=== PATIENT | male | born 1975 | race Caucasian/White ===

== ENCOUNTER 2021-12-04 23:18 | Emergency (ER) | payer MEDICARE, MEDICAID, SELFPAY ==
[2021-12-04 23:23] VITALS: BP 142/90; PULSE 98; RESP 20; TEMP 36.6; O2SAT 95; BMI 33.2
--- NOTE | 2021-12-04 23:28 | ECG_ITS ---
[facility] Test Date: 2021-12-04 Pat Name: Savage Partida Department: Room: Gender: Male Cod Clerk: : 1975 Requested By: Chaim Madrigal Order Number: [id number] Schafer MD: Cheko Russell M.D. Measurements Intervals [place] Rate: 98 P: 51 NJ: 124 QRS: 85 QRSD: 105 T: 38 QT: 340 QTc: 434 Interpretive Statements SINUS RHYTHM Compared to ECG 09/25/2017 02:31:26 Short NJ interval no longer present Electronically Signed On 12-05-2021 12:12:41 CDT by Cheko Russell M.D. [email or web address]
--- NOTE | 2021-12-04 23:28 | XRR_ITS ---
PROCEDURE INFORMATION: Exam: XR Chest Exam date and time: 12/04/2021 11:53 PM Age: 46 years old Clinical indication: Dyspnea and shortness of breath; Additional info: Sob/cp TECHNIQUE: Imaging protocol: XR of the chest. Views: 1 view. COMPARISON: CR Chest 1 [place] [id number] 09/25/2017 2:41 AM FINDINGS: Lungs: No CHF/pulmonary edema. Poor inspiration somewhat limits evaluation, especially of the lung bases. Visible lungs appear essentially clear. Pleural spaces: No visible pneumothorax. No definite pleural fluid. Heart/Mediastinum: Heart size is upper range of normal. Bones/joints: No significant acute finding. XR/XR chest 1V portable [id number] IMPRESSION: 1. No definite CHF or pneumonia. 2. Other findings discussed above.
[2021-12-04 23:40] LABS: Basophils # 0.1 10^3/uL (0.0-0.1); Basophils % 1.1 %; Eosinophils # 0.5 10^3/uL (0.0-0.8); Eosinophils % 6.6 %; Hematocrit 42.6 % (42.0-52.0); Hemoglobin 14.2 g/dL (11.7-16.6); Lymphocytes # 2.4 10^3/uL (0.8-4.8); Lymphocytes % 33.3 %; Mean Corpuscular HGB Conc 33.3 g/dL (30.0-36.0); Mean Corpuscular Hemoglobin 31.4 pg (28.0-34.0); Mean Corpuscular Volume 94.2 fl (80-94); Mean Platelet Volume 9.5 fL (7.4-10.4); Monocytes # 0.5 10^3/uL (0.2-0.9); Monocytes % 6.3 %; Neutrophils # 3.81 10^3/uL (1.8-7.7); Neutrophils % 52.4 %; Nucleated Red Blood Cells % 0 %; Platelet Count 265 10^3/cmm (130-400); Red Blood Count 4.52 10^6/uL (4.1-5.3); Red Cell Distribution Width 13.2 % (12.1-15.1); White Blood Count 7.3 10^3/uL (4.0-10.0)
--- NOTE | 2021-12-04 23:44 | CTR_ITS ---
PROCEDURE INFORMATION: Exam: CT Head Without Contrast Exam date and time: 12/05/2021 12:20 AM Age: 46 years old Clinical indication: Pain; Headache not specified; Prior surgery; Surgery date: 6+ months; Surgery type: Craniotomy - traumatic hemmorhage - legally blind; Patient HX: C/O severe L frontal CANO; Additional info: Worst headache he has ever had TECHNIQUE: Imaging protocol: Computed tomography of the head without contrast. Radiation optimization: All CT scans at this facility use at least one of these dose optimization techniques: automated exposure control; mA and/or kV adjustment per patient size (includes targeted exams where dose is matched to clinical indication); or iterative reconstruction. COMPARISON: CT head wo con* [id number] 11/13/2015 4:50 PM RADIATION DOSE METRICS: Total DLP (mGy-cm): 1720.26 FINDINGS: Brain: No acute intracranial hemorrhage or mass effect. No definite acute infarct by CT. Cerebral ventricles: Ventricle size is normal for age. Paranasal sinuses: Prominent fluid/opacity involving the left ethmoid sinus, with mild opacity of the left frontal and included upper left maxillary sinuses. Included paranasal sinuses otherwise appear essentially clear. Mastoid air cells: No significant acute finding. Bones/joints: No definite acute skull fracture. Soft tissues: No significant acute finding. CT/CT head wo con* [id number] IMPRESSION: 1. No acute intracranial hemorrhage or mass effect. 2. Paranasal sinus findings as discussed above. 3. Other findings discussed above.
--- NOTE | 2021-12-04 23:45 | ED_ITS ---
Documented by User: NICHOLAS Naqvi 12/05/21 21:17 HPI - Anxiety General: Chief Complaint: Anxiety Stated Complaint: sob Time Seen by Provider: 12/04/21 23:28 History of Present Illness: Patient is a 46-year-old male comes to the ED via EMS with headache, shortness of breath and chest pain. Symptoms started all of a sudden approximately an hour before arrival to ED. He said he was lying down and woke up in an worst headache he has ever had on the left frontal part of his head. Denies any neurological symptoms such as paresthesias or weakness to 1 s grazyna of his body. It is a constant aching pain that he rates currently 6 out of 10. He is also having some chest pain in the middle of his chest since he woke up along with some shortness of breath. Patient is from [facility] and he asked them for some medicine for his headache and they sent him here to the ED. patient did state that he is legally blind. Associated symptoms: Reports chest pain and headache(s); Deny chills, fever(s), nausea, palpitations or vomiting Review of Systems Const: Denies: fever(s), chills or fatigue Eyes: Denies: change in vision or eye discomfort ENMT: Denies: throat pain, odynophagia, nasal discharge or nasal congestion Card: Reports: chest pain; Denies: palpitations, edema, swelling of feet/ankles, dyspnea on exertion or orthopnea Resp: Reports: dyspnea; Denies: productive cough or non-productive cough GI: Denies: abdominal pain, nausea, vomiting, diarrhea, constipation or hematochezia : Denies: flank pain, difficulty urinating, dysuria or hematuria Musc: Denies: neck pain, back pain or extremity swelling Skin/Breast: Denies: rash or new lesions Neuro: Reports: headache(s); Denies: numbness in extremities or weakness in extremities PFS ED PFSH: Medical History No pertinent family history Surgical History No pertinent past surgical history Social History Smoking and tobacco status: never smoked Alcohol intake: current Alcohol intake frequency: holidays/special occasions only Physical Exam Const: COMMON NORMALS: patient oriented x3 and alert GENERAL APPEARANCE: cooperative and anxious HENMT: COMMON NORMALS: normocephalic HEAD & SCALP: normocephalic MOUTH: Normal oral and palatal mucosa present THROAT: posterior oropharynx normal and uvula midline Neck/C-Spine: COMMON NORMALS: supple GENERAL: Yes normal visual inspection Resp: COMMON NORMALS: normal respiratory effort, No retractions, No use of accessory muscles and clear to auscultation bilaterally AUSCULTATION: clear to auscultation bilaterally Cardio: COMMON NORMALS: regular rate, regular rhythm, S1 normal heart sound present, S2 normal heart sound present, No gallops present (Cardio), No clicks present (Cardio), No murmurs present (Cardio) and Peripheral pulses 2+ throughout RATE: regular rate RHYTHM: regular rhythm HEART SOUNDS: S1 normal heart sound present and S2 normal heart sound present PERIPHERAL PULSES: Peripheral pulses 2+ throughout GI: COMMON NORMALS: Normal to inspection, nondistended, normoactive bowel sounds present, Soft to palpation, non-tender and no masses PALPATION: Yes Soft to palpation : COMMON NORMALS: Yes no CVA tenderness BLADDER/KIDNEY EXAM: Yes no CVA tenderness Back/Pelvis: COMMON NORMALS: no CVA tenderness Extremity: COMMON NORMALS: normal to inspection and no pedal edema Neuro: COMMON NORMALS: patient oriented x3 and moves all extremities SENSORIUM/ORIENTATION: Yes alert Skin: GENERAL SKIN EXAM: dry skin Course Vital Signs: Vital signs: Vital Signs Temperature 98 F 12/04/21 23:23 Pulse Rate 78 12/05/21 02:22 Respiratory Rate 18 12/05/21 02:22 Blood Pressure 124/78 12/05/21 02:22 Pulse Oximetry 95 12/05/21 02:22 MDM - Anxiety Medical Decision Making Patient is a 46-year-old male comes to the ED with acute onset of headache and some chest pain and dyspnea. Patient is at [facility] and complained about having a headache and wanting medication for that and they sent him here to the ED. Vitals are stable. Patient appears anxious, but rest of exam is benign. CT of head showed no acute findings. All labs were unremarkable. Troponin negative. Chest x-ray showed no acute findings. EKG showed no ST segment eleva tion or depression. Patient was given a dose of Toradol and some Ativan and his symptoms improved. Patient's chest pain and dyspnea are likely due to anxiety. He was stable for discharge home. He was told to follow-up with his PCP in the next week for reevaluation. Return to ED precautions given. Patient is to agree with plan. Lab Data I reviewed the patient's lab results. : 12/04/21 23:30 12/04/21 23: Radiology Impressions Chest X-Ray 12/04/21: IMPRESSION: 1. No definite CHF or pneumonia. 2. Other findings discussed above. Head CT 12/04/21:44 IMPRESSION: 1. No acute intracranial hemorrhage or mass effect. 2. Paranasal sinus findings as discussed above. 3. Other findings discussed above. Laboratory Results WBC 7.3 10^3/uL (4.0-10.0) 12/04/21: RBC 4.52 10^6/uL (4.1-5.3) 12/04/21: Hgb 14.2 g/dL (11.7-16.6) 12/04/21 23: Hct 42.6 % (42.0-52.0) 12/04/21: MCV 94.2 fl (80-94) H 12/04/21: MCH 31.4 pg (28.0-34.0) 12/04/21 23: MCHC 33.3 g/dL (30.0-36.0) 12/04/21: RDW 13.2 % (12.1-15.1) 12/04/21: Plt Count 265 10^3/cmm (130-400) 12/04/21 23: MPV 9.5 fL (7.4-10.4) 12/04/21: Neut % (Auto) 52.4 % 12/04/21: Lymph % (Auto) 33.3 % 12/04/21: Reynolds % (Auto) 6.3 % 12/04/21 23: Eos % (Auto) 6.6 % 12/04/21: Baso % (Auto) 1.1 % 12/04/21: Neut # (Auto) 3.81 10^3/uL (1.8-7.7) 12/04/21 23:30 Lymph # (Auto) 2.4 10^3/uL (0.8-4.8) 12/04/21 23:30 Reynolds # (Auto) 0.5 10^3/uL (0.2-0.9) 12/04/21 23:30 Eos # (Auto) 0.5 10^3/uL (0.0-0.8) 12/04/21: Baso # (Auto) 0.1 10^3/uL (0.0-0.1) 12/04/21: Nucleated RBC % (auto) 0 % 12/04/21: Nucleated RBCs # 0.0 /100WBC 12/04/21: Sodium 138 mmol/L (136-145) 12/04/21: Potassium 3.8 mmol/L (3.5-5.1) 12/04/21: Chloride 99 mmol/L (98-107) 12/04/21: Carbon Dioxide 28 mmol/L (22-29) 12/04/21: Anion Gap 14.8 (5-19) 12/04/21 23: BUN 13 mg/dL (6-20) 12/04/21: Creatinine 0.9 mg/dL (0.7-1.2) 12/04/21 23: GFR Calculation 91.7 mL/min (90-130) 12/04/21: Glucose 134 mg/dL (65-115) H 12/04/21: Calculated Osmolality 288 mOsm/kg (285-295) 12/04/21: Calcium 9.6 mg/dL (8.5-10.5) 12/04/21: Total Bilirubin 0.2 mg/dL (0.15-1.2) 12/04/21: AST 121 U/L (0-40) H 12/04/21: ALT 239 U/L (0-41) H 12/04/21: Alkaline Phosphatase 117 IU/L (40-130) 12/04/21: Troponin T Baseline 6 ng/L (0-15) 12/04/21: Total Protein 7.2 g/dL (6.6-8.7) 12/04/21 23:30 Albumin 4.3 g/dL (3.5-5.2) 12/04/21 23:30 Globulin 2.9 g/dL (1.3-4.6) 12/04/21 23:30 EKG Data EKG 1: EKG interpretation date: 12/04/21 Interpretation: Chest X-Ray 12/04/21 23:28 IMPRESSION: 1. No definite CHF or pneumonia. 2. Other findings discussed above. Head CT 12/04/21 23:44 IMPRESSION: 1. No acute intracranial hemorrhage or mass effect. 2. Paranasal sinus findings as discussed above. 3. Other findings discussed above. Sinus rhythm, no ST segment elevation or depression seen. 98 bpm. Other EKG comments: Chest X-Ray 12/04/21 23:28 IMPRESSION: 1. No definite CHF or pneumonia. 2. Other findings discussed above. Head CT 12/04/21 23:44 IMPRESSION: 1. No acute intracranial hemorrhage or mass effect. 2. Paranasal sinus findings as discussed above. 3. Other findings discussed above. Discharge Plan Discharge Patient Disposition: Home Clinical Impression: Acute anxiety Headache Qualifiers: Headache type: unspecified Headache chronicity pattern: acute headache Intractability: not intractable Qualified Code(s): R51.9 - Headache, unspecified Condition: Stable Prescriptions: No Action tamsulosin [Flomax] 0.4 mg capsule 0.4 mg PO DAILY 0RF hydrocodone-acetaminophen 10-325 mg tablet 1 tab PO Q4H PRN0RF lisinopril 10 mg tablet 10 mg PO DAILY 0RF sulfamethoxazole-trimethoprim 800-160 mg tablet 1 tab PO BID 10 Days Qty: 20 0RF Discharge Orders: Discharge ED (Routine); Ordered 12/05/21 Ordered By: Chaim Madrigal Referrals: Yesenia Hooper DO [Primary Care Provider] - Discharge Diet: Regular Discharge Activity: Increase activity as tolerated Patient Instructions: Acute Headache (ED), Anxiety (ED) Activity Restrictions/Additional Instructions: Follow-up with medical provider as directed in the next 5 to 7 days for reevaluation. Continue taking all home medications as previously prescribed. Take ytqi-nab-[id number] Tylenol or Motrin for any reoccurring headaches. Drink plenty fluids and stay hydrated. Return to the ER or your medical provider if condition worsens. Please read and understand discharge instructions. Thank you for choosing [facility] for your healthcare needs today. Please realize this is an emergency room and that we are providing you with a medical screening exam and this may not be complete and all inclusive of all the testing and or work up that you may need to determine your ailment or severity of your illness. It is very important that you follow up as instructed or that you return to the Emergency Department should you have concerns or if your condition changes or worsens in any way. Coding Level of Care Code ED Co Supervisor [employer] for Chg Fwd Exam Comprehensive Documented by User: Cyrus Box MD 12/07/21 05:09 HPI - Anxiety General: Chief Complaint: Anxiety Stated Complaint: sob Time Seen by Provider: 12/04/21 23:28 [facility] ED PFSH: Medical History No pertinent family history Surgical History No pertinent past surgical history Social History Smoking and tobacco status: never smoked Alcohol intake: current Alcohol intake frequency: holidays/special occasions only Course Vital Signs: Vital signs: Vital Signs Temperature 98 F 12/04/21 23:23 Pulse Rate 78 12/05/21 02:22 Respiratory Rate 18 12/05/21 02:22 Blood Pressure 124/78 12/05/21 02:22 Pulse Oximetry 95 12/05/21 02:22 MDM - Anxiety Medical Decision Making Patient is a 46-year-old male comes to the ED with acute onset of headache and some chest pain and dyspnea. Patient is at [facility] and complained about having a headache and wanting medication for that and they sent him here to the ED. Vitals are stable. Patient appears anxious, but rest of exam is benign. CT of head showed no acute findings. All labs were unremarkable. Troponin negative. Chest x-ray showed no acute findings. EKG showed no ST segment elevation or depression. Patient was given a dose of Toradol and some Ativan and his symptoms improved. Patient's chest pain and dyspnea are likely due to anxiety. He was stable for discharge home. He was told to follow-up with his PCP in the next week for reevaluation. Return to ED precautions given. Patient is to agree with plan. I have reviewed this documentation by NICHOLAS Naqvi. Cyrus Box MD Emergency Medicine Lab Data : 12/04/21 23:30 12/04/21 23:30 Radiology Impressions Chest X-Ray 12/04/21 23:28 IMPRESSION: 1. No definite CHF or pneumonia. 2. Other findings discussed above. Head CT 12/04/21:44 IMPRESSION: 1. No acute intracranial hemorrhage or mass effect. 2. Paranasal sinus findings as discussed above. 3. Other findings discussed above. Laboratory Results WBC 7.3 10^3/uL (4.0-10.0) 12/04/21 23: RBC 4.52 10^6/uL (4.1-5.3) 12/04/21 23:30 Hgb 14.2 g/dL (11.7-16.6) 12/04/21 23: Hct 42.6 % (42.0-52.0) 12/04/21 23: MCV 94.2 fl (80-94) H 12/04/21 23:30 MCH 31.4 pg (28.0-34.0) 12/04/21 23: MCHC 33.3 g/dL (30.0-36.0) 12/04/21 23: RDW 13.2 % (12.1-15.1) 12/04/21 23: Plt Count 265 10^3/cmm (130-400) 12/04/21 23: MPV 9.5 fL (7.4-10.4) 12/04/21 23: Neut % (Auto) 52.4 % 12/04/21 23:30 Lymph % (Auto) 33.3 % 12/04/21 23:30 Reynolds % (Auto) 6.3 % 12/04/21 23:30 Eos % (Auto) 6.6 % 12/04/21 23:30 Baso % (Auto) 1.1 % 12/04/21 23: Neut # (Auto) 3.81 10^3/uL (1.8-7.7) 12/04/21 23: Lymph # (Auto) 2.4 10^3/uL (0.8-4.8) 12/04/21 23:30 Reynolds # (Auto) 0.5 10^3/uL (0.2-0.9) 12/04/21 23: Eos # (Auto) 0.5 10^3/uL (0.0-0.8) 12/04/21 23: Baso # (Auto) 0.1 10^3/uL (0.0-0.1) 12/04/21 23: Nucleated RBC % (auto) 0 % 12/04/21 23: Nucleated RBCs # 0.0 /100WBC 12/04/21 23: Sodium 138 mmol/L (136-145) 12/04/21: Potassium 3.8 mmol/L (3.5-5.1) 12/04/21: Chloride 99 mmol/L (98-107) 12/04/21: Carbon Dioxide 28 mmol/L (22-29) 12/04/21: Anion Gap 14.8 (5-19) 12/04/21 23: BUN 13 mg/dL (6-20) 12/04/21: Creatinine 0.9 mg/dL (0.7-1.2) 12/04/21: GFR Calculation 91.7 mL/min (90-130) 12/04/21: Glucose 134 mg/dL (65-115) H 12/04/21 23: Calculated Osmolality 288 mOsm/kg (285-295) 12/04/21: Calcium 9.6 mg/dL (8.5-10.5) 12/04/21: Total Bilirubin 0.2 mg/dL (0.15-1.2) 12/04/21 23:30 AST 121 U/L (0-40) H 12/04/21 23:30 ALT 239 U/L (0-41) H 12/04/21 23:30 Alkaline Phosphatase 117 IU/L (40-130) 12/04/21 23:30 Troponin T Baseline 6 ng/L (0-15) 12/04/21 23:30 Total Protein 7.2 g/dL (6.6-8.7) 12/04/21 23:30 Albumin 4.3 g/dL (3.5-5.2) 12/04/21 23:30 Globulin 2.9 g/dL (1.3-4.6) 12/04/21 23:30 EKG Data EKG 1: Interpretation: Chest X-Ray 12/04/21 23:28 IMPRESSION: 1. No definite CHF or pneumonia. 2. Other findings discussed above. Head CT 12/04/21 23:44 IMPRESSION: 1. No acute intracranial hemorrhage or mass effect. 2. Paranasal sinus findings as discussed above. 3. Other findings discussed above. Other EKG comments: Chest X-Ray 12/04/21 23:28 IMPRESSION: 1. No definite CHF or pneumonia. 2. Other findings discussed above. Head CT 12/04/21 23:44 IMPRESSION: 1. No acute intracranial hemorrhage or mass effect. 2. Paranasal sinus findings as discussed above. 3. Other findings discussed above. Discharge Plan Discharge Patient Disposition: Home Clinical Impression: Acute anxiety Headache Qualifiers: Headache type: unspecified Headache chronicity pattern: acute headache Intractability: not intractable Qualified Code(s): R51.9 - Headache, unspecified Condition: Stable Prescriptions: No Action tamsulosin [Flomax] 0.4 mg capsule 0.4 mg PO DAILY 0RF hydrocodone-acetaminophen 10-325 mg tablet 1 tab PO Q4H PRN0RF lisinopril 10 mg tablet 10 mg PO DAILY 0RF sulfamethoxazole-trimethoprim 800-160 mg tablet 1 tab PO BID 10 Days Qty: 20 0RF Discharge Orders: Discharge ED (Routine); Ordered 12/05/21 Ordered By: Chaim Madrigal Referrals: Yesenia Hooper DO [Primary Care Provider] - Discharge Diet: Regular Discharge Activity: Increase activity as tolerated Patient Instructions: Acute Headache (ED), Anxiety (ED) Activity Restrictions/Additional Instructions: Follow-up with medical provider as directed in the next 5 to 7 days for reevaluation. Continue taking all home medications as previously prescribed. Take vbzj-lda-aggable Tylenol or Motrin for any reoccurring headaches. Drink plenty fluids and stay hydrated. Return to the ER or your medical provider if condition worsens. Please read and understand discharge instructions. Thank you for choosing [facility] for your healthcare needs today. Please realize this is an emergency room and that we are providing you with a medical screening exam and this may not be complete and all inclusive of all the testing and or work up that you may need to determine your ailment or severity of your illness. It is very important that you follow up as instructed or that you return to the Emergency Department should you have concerns or if your condition changes or worsens in any way. Coding Level of Care Code ED Co Supervisor [employer] for [place] Fwd Exam Comprehensive
[2021-12-04 23:57] LABS: Alanine Aminotransferase 239 U/L (0-41); Albumin Level 4.3 g/dL (3.5-5.2); Alkaline Phosphatase 117 IU/L (40-130); Anion Gap 14.8 (5-19); Aspartate Amino Transferase 121 U/L (0-40); Blood Urea Nitrogen 13 mg/dL (6-20); Calcium 9.6 mg/dL (8.5-10.5); Carbon Dioxide 28 mmol/L (22-29); Chloride 99 mmol/L (98-107); Globulin 2.9 g/dL (1.3-4.6); Glomerular Filtration Rate 91.7 mL/min (90-130); Glucose 134 mg/dL (65-115); Osmolality Calculated 288 mOsm/kg (285-295); Potassium 3.8 mmol/L (3.5-5.1); Sodium 138 mmol/L (136-145); Total Bilirubin 0.2 mg/dL (0.15-1.2); Total Protein 7.2 g/dL (6.6-8.7)
[2021-12-04 23:58] LABS: Troponin(5th) Baseline 6 ng/L (0-15)
[2021-12-05] MEDS: ketorolac 30 mg/mL INJ IVP (00:32)
[2021-12-05] MEDS: LORazepam 2 mg/mL INJ 1 mL IVP (00:34)
[2021-12-05 01:25] VITALS: BP 120/94; PULSE 79; RESP 18; O2SAT 94
[2021-12-05 02:22] VITALS: BP 124/78; PULSE 78; RESP 18; O2SAT 95
== END 2021-12-05 02:24 | disposition home or self-care (01) ==
PROVIDERS: Emergency Provider Physician Assistant; PCP Family Medicine
DX: F41.9 Anxiety disorder, unspecified (principal); R51.9 Headache, unspecified
CPT/HCPCS: 70450; 71045; 80053; 84484; 85025; 93005; 96374; 96375; 99285; J1885; J2060

== ENCOUNTER → 2021-12-27 14:48 | Outpatient (BNVA) | payer MEDICARE, MEDICAID, SELFPAY | PROVIDERS: Visit Provider Family Medicine | DX: G47.30 Sleep apnea, unspecified (principal); R40.0 Somnolence; R06.83 Snoring; J35.1 Hypertrophy of tonsils; R74.8 Abnormal levels of other serum enzymes; R53.83 Other fatigue | CPT/HCPCS: 80053; 86706; 86803; 87389 ==

== ENCOUNTER → 2021-12-28 16:34 | Outpatient (BNVA) | payer MEDICARE, MEDICAID, SELFPAY | PROVIDERS: Visit Provider Family Medicine | DX: G47.30 Sleep apnea, unspecified (principal); R40.0 Somnolence; R06.83 Snoring; J35.1 Hypertrophy of tonsils; R74.8 Abnormal levels of other serum enzymes | CPT/HCPCS: 87522; 87806 ==

== ENCOUNTER → 2022-01-25 08:35 | Outpatient (BNVA) | payer MEDICARE, MEDICAID, SELFPAY | PROVIDERS: Visit Provider Otolaryngology | DX: G47.33 Obstructive sleep apnea (adult) (pediatric) (principal); K14.8 Other diseases of tongue; F17.210 Nicotine dependence, cigarettes, uncomplicated | CPT/HCPCS: 99203; 99204 ==